=== PATIENT | male | born 1985 | race African-American/Black ===

== ENCOUNTER 2019-08-26 11:17 | Inpatient (IN) | payer OTHER ==
[2019-08-26 12:24] LABS: #Basophils 0.1 thou/uL (0.0-0.2); #Eosinphils 0.1 thou/uL (0.0-0.7); #Monocytes 1.2 thou/uL (0.11-0.59); #Neutrophils 7.1 thou/uL (1.40-6.50); %Basophils 0.6 % (0.0-1.0); %Eosinophils 0.5 % (0.0-10.0); %Lymphocytes 19.5 % (21.0-51.0); %Monocytes 11.6 % (0.0-10.0); %Neutrophils 67.8 % (42.0-75.0); Hemoglobin 15.2 g/dL (14.0-18.0); Mean Corpuscular HGB CONC 33.7 g/dL (32.0-36.0); Mean Corpuscular Hemoglobin 30.1 pg (27.0-31.0); Mean Corpuscular Volume 89.3 fL (78.0-98.0); Mean Platelet Volume 9.4 fL (7.4-10.4); Platelet Count 165 thou/uL (130-400); RBC Distribution Width 11.9 % (11.5-14.5); Red Blood Cell (RBC) Count 5.05 mill/uL (4.70-6.10); White Blood Cell (WBC) Count 10.4 thou/uL (4.8-10.8)
[2019-08-26 12:51] LABS: ALT (SGPT) 68 U/L (8-55); AST (SGOT) 48 U/L (5-34); Albumin 4.2 g/dL (3.5-5.0); Alkaline Phosphatase 104 U/L (40-110); Anion Gap 13 mmol/L (10-20); BUN (Urea Nitrogen) 9 mg/dL (8.9-20.6); Calc. Creatinine Clearance 0 mL/min (70-130); Carbon Dioxide 26 mmol/L (22-29); Chloride 102 mmol/L (98-107); Estimated GFR-MDRD Greater than 90; Globulin 3.9 g/dL (2.4-3.5); Glucose 109 mg/dL (70-105); Potassium 3.2 mmol/L (3.5-5.1); Protein, Total 8.1 g/dL (6.0-8.3); Sodium 138 mmol/L (136-145)
[2019-08-26] MEDS ORDERED: Piperacillin/Tazobactam 4.5 GM VIAL ONE (13:18)
--- NOTE | 2019-08-26 15:27 | ULT ---
RIGHT LOWER EXTREMITY DOPPLER VENOUS ULTRASOUND PROVIDED CLINICAL HISTORY: Right lower extremity pain and edema TECHNIQUE: Grayscale and color Doppler sonography with spectral analysis was performed of the right common femor al, femoral, popliteal, posterior tibial, greater saphenous and profunda femoral veins. FINDINGS: There is normal compression, flow and augmentation seen within the deep venous structures o f the right lower extremity. There are enlarged lymph nodes within the right inguinal region. 1 cm enlarged lymph nodes measures 2.1 x 6 1.0 x 1.7 cm. An additional enlarged lymph node measures 3.2 x 1.3 x 2.8 cm. IMPRESSION: No sonographic evidence for right lower extremity deep venous thrombosis. Right inguinal lymphadenopathy
[2019-08-26] MEDS ORDERED: Senokot S 8.6-50 MG TAB PO PRN (16:03)
[2019-08-26 16:43] VITALS: BMI 29.2
[2019-08-26] MEDS ORDERED: Sodium Chloride 0.9% 1,000 ML IV SCH (17:25)
[2019-08-26] MEDS ORDERED: Ondansetron ODT 4 MG TAB SL PRN (17:25)
[2019-08-26] MEDS ORDERED: Ondansetron PF 4 MG/2 ML Vial IVP PRN (17:25)
[2019-08-26] MEDS: Potassium Chloride 20 MEQ TAB PO SCH (18:00)
[2019-08-26] MEDS ORDERED: Piperacillin/Tazobactam 4.5 GM in Sodium Chloride 0.9% 100 ML IVPB SCH (20:00)
[2019-08-26] MEDS: Piperacillin/Tazobactam 4.5 GM in Sodium Chloride 0.9% 100 ML IVPB SCH (20:20)
[2019-08-26] MEDS: Famotidine 20 MG TAB PO SCH (20:21)
[2019-08-26] MEDS: Acetaminophen 325 MG TAB PO PRN (20:21)
[2019-08-27] MEDS ORDERED: Vancomycin HCl 1 GM in Premix Bag 1 BAG IVPB SCH (02:00)
[2019-08-27] MEDS: Vancomycin HCl 1 GM in Premix Bag 1 BAG IVPB SCH ×2 (02:10→14:31)
[2019-08-27] MEDS: Piperacillin/Tazobactam 4.5 GM in Sodium Chloride 0.9% 100 ML IVPB SCH ×3 (06:08→20:46)
--- NOTE | 2019-08-27 06:18 | HP ---
PRIMARY CARE PHYSICIAN: [facility] at group home. CHIEF COMPLAINT: Evaluation of pain to right foot. HISTORY OF PRESENT ILLNESS: Mr. Cavazos is a 33-year-old male, [facility] Reports of right foot pain, onset Sunday. Reports that he went to the [facility], was started on Keflex. Reports that starting Sunday, pain, swelling, and redness started to extend from his foot up to his lower right extremity, today almost to his knee. He reports some fever and chills for the last couple of days. He denies any specific injury. Denies any noticeable opening to the skin on the right foot. Denies any history of anything similar in his past. The patient was noted to have a potassium of 3.2, AST 48, ALT 68, globulin 3.9. Otherwise, labs are unremarkable. The patient was started on Zosyn and vancomycin in the emergency room and then admitted to medical for further IV antibiotics and management. The patient also had an ultrasound of the right leg, which was negative for DVT. REVIEW OF SYSTEMS: The patient reports fever and chills. He denies any chest pain or shortness of breath. Does report right foot pain, redness, warmth, pain, and swelling; all of this extends from his toes up to about an inch below his knee. Denies any focal weakness or headache. All other symptoms are reviewed and are negative unless mentioned in the HPI. PAST MEDICAL HISTORY: None. PAST SURGICAL HISTORY: None. PSYCHIATRIC HISTORY: None. ALLERGIES: NONE. CURRENT MEDICATIONS: 1. Hydrochlorothiazide 12.5 mg p.o. once a day in the morning. 2. Cephalexin 500 mg once a day in the morning. 3. Tylenol 325 mg p.o. once a day. PHYSICAL EXAMINATION: VITAL SIGNS: Blood pressure 126/80, pulse is 84, respirations 18, temp is 98.6, pO2 sats are 98% on room air. CONSTITUTIONAL: The patient is nontoxic appearing. He is alert and oriented to person, place, and time. HEENT: Head is atraumatic and normocephalic. Pupils are equally round and reactive to light. Extraocular muscles are intact. ENT; mouth exam is normal. Mucous membranes are moist. NECK: Trachea is midline. No tenderness. RESPIRATORY/CHEST: Breath sounds are clear. Chest expansion is equal. CARDIOVASCULAR: Regular heart rate and rhythm. Heart sounds are normal. ABDOMEN: Nontender. Bowel sounds are heard. BACK: Normal range of motion. No tenderness. EXTREMITIES: Upper extremity; normal motor strength, normal range of motion, radial pulses are equal. Lower extremity; right lower leg is edematous with erythema and warmth. Erythema extends from the toes up to about 1 inch below the knee. SKIN: Otherwise warm, dry, normal in color. Please see right lower leg description. DIAGNOSTIC STUDIES: Chest x-ray is negative for any acute findings. PLAN AND ASSESSMENT: 1. Cellulitis, right lower leg. We will continue the vancomycin and Zosyn. We have asked pharmacy to dose the vancomycin. We will recheck labs in the morning. 2. Hypokalemia. K-Dur 40 mEq ordered today and in the morning, we will recheck lab values. 3. Elevated liver enzymes. We will monitor and recheck in the morning. 4. Deep venous thrombosis and gastrointestinal prophylaxis have been started. 5. Hospital course is dependent on clinical findings. Job ID: [id number]
[2019-08-27 06:19] LABS: #Eosinphils 0.1 thou/uL (0.0-0.7); #Lymphocytes 1.6 thou/uL (1.20-3.40); #Monocytes 1.1 thou/uL (0.11-0.59); #Neutrophils 5.3 thou/uL (1.40-6.50); %Eosinophils 0.7 % (0.0-10.0); %Lymphocytes 19.9 % (21.0-51.0); %Monocytes 13.6 % (0.0-10.0); %Neutrophils 65.7 % (42.0-75.0); Hemoglobin 12.9 g/dL (14.0-18.0); Mean Corpuscular HGB CONC 33.9 g/dL (32.0-36.0); Mean Corpuscular Hemoglobin 30.4 pg (27.0-31.0); Mean Corpuscular Volume 89.8 fL (78.0-98.0); Platelet Count 192 thou/uL (130-400); RBC Distribution Width 12.1 % (11.5-14.5); Red Blood Cell (RBC) Count 4.25 mill/uL (4.70-6.10); White Blood Cell (WBC) Count 8.1 thou/uL (4.8-10.8)
[2019-08-27] MEDS: Potassium Chloride 20 MEQ TAB PO SCH (06:20)
[2019-08-27 06:41] LABS: ALT (SGPT) 48 U/L (8-55); AST (SGOT) 33 U/L (5-34); Albumin 3.4 g/dL (3.5-5.0); Alkaline Phosphatase 94 U/L (40-110); Anion Gap 10 mmol/L (10-20); BUN (Urea Nitrogen) 8 mg/dL (8.9-20.6); Bilirubin, Total 0.9 mg/dL (0.2-1.2); Calc. Creatinine Clearance 175 mL/min (70-130); Calcium 9.1 mg/dL (7.8-10.44); Carbon Dioxide 27 mmol/L (22-29); Chloride 104 mmol/L (98-107); Estimated GFR-MDRD Greater than 90; Globulin 3.3 g/dL (2.4-3.5); Glucose 110 mg/dL (70-105); Potassium 3.8 mmol/L (3.5-5.1); Protein, Total 6.7 g/dL (6.0-8.3); Sodium 137 mmol/L (136-145)
[2019-08-27] MEDS: HYDROcodone/Acetaminophen 5/325 mg Tablet PO PRN ×2 (07:52→19:08)
[2019-08-27] MEDS: Enoxaparin Sodium 40 MG/0.4 ML SYRINGE SC SCH (07:52)
[2019-08-27] MEDS: Famotidine 20 MG TAB PO SCH ×2 (07:52→20:46)
[2019-08-27] MEDS ORDERED: FLU VACC QS2019-20(6MOS UP)/PF 60 MCG/0.5 ML SYRINGE IM ONE (09:00)
[2019-08-27] MEDS ORDERED: Iopamidol-370 76% 500 ML 1 ML ONE (11:28)
[2019-08-27] MEDS ORDERED: Morphine 2 MG/ML SYRINGE SLOW IVP PRN (21:18)
--- NOTE | 2019-08-27 21:19 | PDOC.EVN ---
Event Note - Event Note Event Note: Patient states his rash on his leg is still the same and leg is still swollen. He was taking diuretics for fluid retention in his legs and felt the rash and swelling got worst after that. Physical exam: Gen: alert, awake, oriented times three CV: RRR, no murmurs, rubs, gallops RLE: warm, with erythema extending up to knee. Tender to palpation. Foot swollen as well LLE: mild swelling but no tenderness Abdomen: nondistended RLE doppler: no DVT, right inguinal lymphadenopathy This is 33 year old male who presented with worsening rash and swelling after starting lasix RLE swelling rash - possibly from cellulitis vs gout vs allergic reaction - continue IV vancomycin and zosyn . Blood cultures negative - no DVT in right lower extremity - check RLE CT scan due to extensive erythema - check uric acid, try one dose of colchicine empirically - add morphine IV prn - continue tylenol prn and oxycodone prn Hypokalemia - resolved Anemia - Hb 12, continue to trend
--- NOTE | 2019-08-27 22:56 | CT ---
CT SCAN OF THE RIGHT LOWER EXTREMITY (LEG AND FOOT) WITH IV CONTRAST: 08/27/19 HISTORY: Erythema and swelling of the right leg. FINDINGS: There is fluid/edema in the subcutaneous fat of the right leg and foot. No abnormally loculated fluid collection is seen to suggest abscess formation. No bony destruction or periosteal reaction is noted to suggest osteomyelitis. No soft tissue air is seen. The bones are intact. IMPRESSION: Findings are suggestive of right lower extremity cellulitis. POS: OFF
[2019-08-27] MEDS ORDERED: Colchicine 0.6 MG TAB PO SCH (23:45)
[2019-08-28] MEDS: Vancomycin HCl 1 GM in Premix Bag 1 BAG IVPB SCH ×2 (01:36→15:17)
[2019-08-28 05:28] LABS: Hemoglobin 13.1 g/dL (14.0-18.0); Mean Corpuscular HGB CONC 33.2 g/dL (32.0-36.0); Mean Corpuscular Hemoglobin 30.1 pg (27.0-31.0); Mean Corpuscular Volume 90.6 fL (78.0-98.0); Mean Platelet Volume 8.4 fL (7.4-10.4); Platelet Count 216 thou/uL (130-400); RBC Distribution Width 12.3 % (11.5-14.5); Red Blood Cell (RBC) Count 4.35 mill/uL (4.70-6.10); White Blood Cell (WBC) Count 9.5 thou/uL (4.8-10.8)
[2019-08-28 05:50] LABS: Anion Gap 10 mmol/L (10-20); BUN (Urea Nitrogen) 6 mg/dL (8.9-20.6); Calc. Creatinine Clearance 171 mL/min (70-130); Calcium 9.1 mg/dL (7.8-10.44); Carbon Dioxide 27 mmol/L (22-29); Chloride 103 mmol/L (98-107); Estimated GFR-MDRD Greater than 90; Glucose 107 mg/dL (70-105); Potassium 3.7 mmol/L (3.5-5.1); Sodium 136 mmol/L (136-145)
[2019-08-28] MEDS: HYDROcodone/Acetaminophen 5/325 mg Tablet PO PRN ×2 (06:22→21:38)
[2019-08-28] MEDS: Piperacillin/Tazobactam 4.5 GM in Sodium Chloride 0.9% 100 ML IVPB SCH (06:22)
[2019-08-28] MEDS ORDERED: CEFAZOLIN 2 GM in Premix Bag 1 BAG IVPB SCH (09:21)
[2019-08-28] MEDS: Enoxaparin Sodium 40 MG/0.4 ML SYRINGE SC SCH (09:22)
[2019-08-28] MEDS: Famotidine 20 MG TAB PO SCH ×2 (09:22→21:38)
[2019-08-28] MEDS: Acetaminophen 325 MG TAB PO PRN ×2 (09:22→15:42)
--- NOTE | 2019-08-28 09:26 | PDOC.HOSPP ---
- Subjective Encounter Date: 08/28/19 Encounter Time: 09:24 Subjective: The patient reports improvement in his pain with pain medication. CT scan of RLE showed severe swelling and edema, no abscess or fluid collection. He has mild tingling in his feet He reported no relief with colchicine. Uric acid level came back low - Objective Vital Signs & Weight: Vital Signs (12 hours) Temp Pulse Resp BP Pulse Ox 08/28/19 07:35 99.2 F 86 16 101/67 96 Weight Weight 223 lb 1.725 oz I&O: 08/27/19 08/28/19 08/29/19 06:59 06:59 06:59 Intake Total 900 1330 Balance 900 1330 Result Diagrams: 08/28/19 05:14 08/28/19 05:14 Hospitalist ROS - Review of Systems Constitutional: denies: fever, chills - Medication Medications: Active Medications Generic Name Dose Route Start Last Admin Trade Name Freq PRN Reason Stop Dose Admin Acetaminophen 650 mg 08/26/19 16:03 08/28/19 09:22 Tylenol PO 650 mg Q4H PRN Administration Headache/Fever/Mild Pain (1-3) Hydrocodone Bitart/Acetaminophen 1 tab 08/26/19 16:03 08/28/19 06:22 [place] 5/325 PO 1 tab Q4H PRN Administration Moderate Pain (4-6) Enoxaparin Sodium 40 mg 08/27/19 09:00 08/28/19 09:22 Lovenox SC 40 mg 0900 ASHLEY Administration Famotidine 20 mg 08/26/19 21:00 08/28/19 09:22 Pepcid PO 20 mg BID ASHLEY Administration Vancomycin HCl 1 gm/ Device 200 mls @ 200 mls/hr 08/27/19 02:00 08/28/19 01: 36 IVPB 200 mls 0200,1400 ASHLEY Administration - Exam General Appearance: NAD, awake alert Eye: PERRL, anicteric sclera ENT: normocephalic atraumatic, no oropharyngeal lesions Neck: supple, symmetric, no JVD, no thyromegaly Heart: RRR, no murmur, no gallops, no rubs Respiratory: CTAB, no wheezes, no rales, no ronchi Extremities - other findings: Diffuse erythema from mid calf to foot with warmth and tenderness. Skin - other findings: Dry skin on the foot. 3+ pitting edema. Improved from yesterday Hosp A/P - Plan RLE doppler: no DVT, right inguinal lymphadenopathy CT Right lower extremity: edema and fluid build up without abscess, consistent with cellulitis This is 33 year old male who presented with worsening rash and swelling after starting lasix RLE swelling rash - possibly from cellulitis vs allergic reaction - continue IV vancomycin and zosyn . Blood cultures negative. CT right lower extremity consistent with cellulitis. Dopplers negative for DVT - uric acid negative - advised to keep leg elevated and wear compression stockings - continue tylenol prn and oxycodone prn and morphine prn Hypokalemia - resolved Anemia - Hb 12, continue to trend - check B12, folate Code status: full code
[2019-08-28] MEDS: Piperacillin/Tazobactam 3.375 GM in Sodium Chloride 0.9% 100 ML IVPB SCH ×3 (10:54→21:39)
[2019-08-28 13:40] LABS: Vancomycin, Trough 3.7 ug/mL
[2019-08-29] MEDS: Piperacillin/Tazobactam 3.375 GM in Sodium Chloride 0.9% 100 ML IVPB SCH ×2 (05:20→10:12)
[2019-08-29 05:32] LABS: Hemoglobin 12.9 g/dL (14.0-18.0); Mean Corpuscular HGB CONC 32.5 g/dL (32.0-36.0); Mean Corpuscular Hemoglobin 29.5 pg (27.0-31.0); Mean Corpuscular Volume 90.8 fL (78.0-98.0); Platelet Count 245 thou/uL (130-400); RBC Distribution Width 12.3 % (11.5-14.5); Red Blood Cell (RBC) Count 4.35 mill/uL (4.70-6.10); White Blood Cell (WBC) Count 9.7 thou/uL (4.8-10.8)
[2019-08-29 05:53] LABS: ALT (SGPT) 83 U/L (8-55); AST (SGOT) 46 U/L (5-34); Albumin 3.3 g/dL (3.5-5.0); Alkaline Phosphatase 128 U/L (40-110); Anion Gap 9 mmol/L (10-20); BUN (Urea Nitrogen) 6 mg/dL (8.9-20.6); Bilirubin, Total 0.7 mg/dL (0.2-1.2); Calc. Creatinine Clearance 177 mL/min (70-130); Calcium 8.9 mg/dL (7.8-10.44); Carbon Dioxide 26 mmol/L (22-29); Chloride 105 mmol/L (98-107); Estimated GFR-MDRD Greater than 90; Globulin 3.5 g/dL (2.4-3.5); Glucose 105 mg/dL (70-105); Protein, Total 6.8 g/dL (6.0-8.3); Sodium 136 mmol/L (136-145)
[2019-08-29] MEDS: Famotidine 20 MG TAB PO SCH ×2 (07:37→20:02)
[2019-08-29] MEDS: Enoxaparin Sodium 40 MG/0.4 ML SYRINGE SC SCH (07:38)
[2019-08-29] MEDS: HYDROcodone/Acetaminophen 5/325 mg Tablet PO PRN ×3 (07:40→20:02)
--- NOTE | 2019-08-29 12:15 | PDOC.HOSPP ---
- Subjective Encounter Date: 08/29/19 Encounter Time: 12:13 Subjective: The patient got out of bed today, he still has trouble walking however and pain when he walks. No tingling or numbness. Patient is keeping his leg elevated - Objective Vital Signs & Weight: Vital Signs (12 hours) Temp Pulse Resp BP Pulse Ox 08/29/19 08:00 97 08/29/19 07:47 99.3 F 93 18 111/73 97 Weight Weight 223 lb 1.725 oz I&O: 08/28/19 08/29/19 08/30/19 06:59 06:59 06:59 Intake Total 1330 1480 360 Balance 1330 1480 360 Result Diagrams: 08/29/19 05:20 08/29/19 05:20 Hospitalist ROS - Review of Systems Constitutional: denies: fever, chills Cardiovascular: denies: chest pain, palpitations - Medication Medications: Active Medications Generic Name Dose Route Start Last Admin Trade Name Freq PRN Reason Stop Dose Admin Acetaminophen 650 mg 08/26/19 16:03 08/28/19 15:42 Tylenol PO 650 mg Q4H PRN Administration Headache/Fever/Mild Pain (1-3) Hydrocodone Bitart/Acetaminophen 1 tab 08/26/19 16:03 08/28/19 21:38 [place] 5/325 PO 1 tab Q4H PRN Administration Moderate Pain (4-6) Hydrocodone Bitart/Acetaminophen 2 tab 08/26/19 16:03 08/29/19 07:40 [place] 5/325 PO 2 tab Q4H PRN Administration Severe Pain (7-10) Enoxaparin Sodium 40 mg 08/27/19 09:00 08/29/19 07:38 Lovenox SC 40 mg 0900 ASHLEY Administration Famotidine 20 mg 08/26/19 21:00 08/29/19 07:37 Pepcid PO 20 mg BID ASHLEY Administration Piperacillin Sod/Tazobactam 100 mls @ 200 mls/hr 08/28/19 10:00 08/29/19 10: 12 Sod 3.375 gm/ Sodium Chloride IVPB 100 mls 0400,1000,1600,2200 ASHLEY Administration Vancomycin HCl 2 gm/ Sodium 500 mls @ 250 mls/hr 08/28/19 14:00 08/29/19 01: 49 Chloride IVPB 500 mls 0200,1400 ASHLEY Administration - Exam General Appearance: NAD, awake alert Eye: PERRL, anicteric sclera ENT: normocephalic atraumatic, no oropharyngeal lesions Neck: supple, symmetric, no JVD, no thyromegaly Heart: RRR, no murmur, no gallops, no rubs Respiratory: CTAB, no wheezes, no rales, no ronchi Gastrointestinal: soft, non-tender, non-distended, normal bowel sounds Extremities: no cyanosis, no clubbing Extremities - other findings: RLE edema 3+, less erythema on the foot, still some on roberto Hosp A/P - Plan RLE doppler: no DVT, right inguinal lymphadenopathy CT Right lower extremity: edema and fluid build up without abscess, consistent with cellulitis This is 33 year old male who presented with worsening rash and swelling after starting lasix RLE swelling rash - possibly from cellulitis vs allergic reaction - continue IV vancomycin and zosyn day 3 . Blood cultures negative. CT right lower extremity consistent with cellulitis. Dopplers negative for DVT - uric acid negative - advised to keep leg elevated and wear compression stockings. Ambulate out of bed every 2 hours - continue tylenol prn and oxycodone prn and morphine prn Transaminitis - LFTs trended up, will hold tylenol - no abdominal pain - repeat LFTS tomorrow Anemia - Hb 12, continue to trend - B12 and folate normal Hypokalemia - resolved Dispo: possibly 1-2 days Code status: full code
[2019-08-29] MEDS: cefTRIAXone\\ROCEPHIN 1 GM in Sodium Chloride 0.9% 100 ML IVPB SCH (14:04)
--- NOTE | 2019-08-29 14:10 | CON ---
DATE OF CONSULTATION: REASON FOR CONSULTATION: Cellulitis. HISTORY OF PRESENT ILLNESS: A 33-year-old, first admission to [facility] with history of new onset of right foot and leg inflammatory process, which developed pretty much overnight. Prior to this, his health was pretty much normal. He was given Keflex with persistence of problem, so he was transferred for evaluation and treatment here. He is receiving broad-spectrum coverage. He is currently awake and alert. No headaches, visual symptoms, sore throat, odynophagia, dysphagia. No cough or sputum production. No chest pain. No abdominal pain or diarrhea. No genitourinary symptoms. No joint symptoms. No neurological symptoms. MEDICAL HISTORY: Negative. SURGICAL HISTORY: Negative. ALLERGIES: NONE. FAMILY HISTORY: Noncontributory. SOCIAL HISTORY: He is currently incarcerated at [facility]. Prior smoking history. CURRENT MEDICATIONS: 1. Hydrocodone. 2. Lovenox. 3. Pepcid. 4. Zosyn. 5. Vancomycin. PHYSICAL EXAMINATION: VITAL SIGNS: T-max 99.9, blood pressure 111/73, pulse 93, respirations 18, O2 saturation 97%. SKIN: Circumferential erythema extending from the area immediately below the knee all the way to the entire foot, areas of exfoliation in the dorsal aspect of the skin of the foot. No intertriginous problems in the toe area. No blistering yet. No evidence of abscess formation or necrosis. No lymphadenopathy. HEENT: Ocular movements are conjugate. Sclerae white. Pupils are equal. Oral cavity with teeth in very good condition. Little bit of periodontitis. No thrush. NECK: Supple. No jugular vein distention or carotid bruits. No thyromegaly. LUNGS: Symmetric. Clear breath sounds. HEART: S1 and S2, regular rate. No S3 or S4. ABDOMEN: Soft, not distended or tender. No ascites. No bladder distention. EXTREMITIES: No joint inflammatory activity. Pulses are normal in dorsalis pedis. NEURO EXAMINATION: Nonfocal. Cognitive function including speech is normal. Recollection is normal. He is oriented. LABORATORY DATA: White cell count is 10.4 down to 9.7, hemoglobin is at 12.9, MCV 90, and platelets 245, 67% neutrophils, 19% lymphocytes. Sodium 137, creatinine 0.85. Liver profile normal. Albumin 3.4. The AST is up to 46, ALT 83, and alkaline phosphatase 128. Vanc trough, 3.7. Blood culture, no growth at 48 hours. There is a lower extremity CT scan, which showed cellulitis. There is a vascular ultrasound with no evidence of deep vein thrombosis with the right lymphadenitis. ASSESSMENT: Acute cellulitis, right leg. No evidence of other complications. No evidence of necrotizing features. DISCUSSION: The patient will be transitioned to Rocephin. Discontinue current antimicrobials, beta-hemolytic streptococci are the more likely pathogens in this kind of situation. Gram-negative rods sometimes may occur in the setting of chronic liver disease or other types of immunosuppression. Staphylococcus aureus sometimes can present mimicking cellulitis and only later, an abscess can be more obvious, but in this case, I do not see any reasons to suspect that. Typically, those cases take up to a week to be able to be transitioned to oral antimicrobial therapy. Job ID: [id number]
[2019-08-30 07:35] LABS: Hemoglobin 13.1 g/dL (14.0-18.0); Mean Corpuscular HGB CONC 33.5 g/dL (32.0-36.0); Mean Corpuscular Volume 92.5 fL (78.0-98.0); Mean Platelet Volume 8.4 fL (7.4-10.4); Platelet Count 277 thou/uL (130-400); RBC Distribution Width 12.5 % (11.5-14.5); Red Blood Cell (RBC) Count 4.24 mill/uL (4.70-6.10); White Blood Cell (WBC) Count 8.7 thou/uL (4.8-10.8)
[2019-08-30 07:57] LABS: ALT (SGPT) 78 U/L (8-55); AST (SGOT) 35 U/L (5-34); Albumin 3.4 g/dL (3.5-5.0); Alkaline Phosphatase 127 U/L (40-110); Anion Gap 8 mmol/L (10-20); BUN (Urea Nitrogen) 8 mg/dL (8.9-20.6); Bilirubin, Total 0.6 mg/dL (0.2-1.2); Calc. Creatinine Clearance 171 mL/min (70-130); Calcium 9.4 mg/dL (7.8-10.44); Carbon Dioxide 27 mmol/L (22-29); Chloride 106 mmol/L (98-107); Estimated GFR-MDRD Greater than 90; Globulin 3.5 g/dL (2.4-3.5); Glucose 108 mg/dL (70-105); Potassium 4.4 mmol/L (3.5-5.1); Protein, Total 6.9 g/dL (6.0-8.3); Sodium 137 mmol/L (136-145)
[2019-08-30] MEDS: Famotidine 20 MG TAB PO SCH ×2 (08:01→20:11)
[2019-08-30] MEDS: Enoxaparin Sodium 40 MG/0.4 ML SYRINGE SC SCH (08:01)
[2019-08-30] MEDS: HYDROcodone/Acetaminophen 5/325 mg Tablet PO PRN ×3 (08:03→20:11)
[2019-08-30] MEDS: cefTRIAXone\\ROCEPHIN 1 GM in Sodium Chloride 0.9% 100 ML IVPB SCH (13:59)
--- NOTE | 2019-08-30 14:52 | PDOC.HOSPP ---
- Subjective Encounter Date: 08/30/19 Encounter Time: 14:50 Subjective: Mr. Cavazos was seen today in follow-up of cellulitis of the right leg. He notes some improvement. No new complaints. - Objective Vital Signs & Weight: Vital Signs (12 hours) Temp Pulse Resp BP Pulse Ox 08/30/19 08:00 97 08/30/19 07:48 99.3 F 83 18 97/65 97 Weight Weight 223 lb 1.725 oz I&O: 08/29/19 08/30/19 08/31/19 06:59 06:59 06:59 Intake Total 1480 1570 720 Balance 1480 1570 720 Result Diagrams: 08/30/19 06:50 08/30/19 06:50 Hospitalist ROS - Medication Medications: Active Medications Generic Name Dose Route Start Last Admin Trade Name Freq PRN Reason Stop Dose Admin Acetaminophen 650 mg 08/26/19 16:03 08/28/19 15:42 Tylenol PO 650 mg Q4H PRN Administration Headache/Fever/Mild Pain (1-3) Hydrocodone Bitart/Acetaminophen 1 tab 08/26/19 16:03 08/28/19 21:38 [place] 5/325 PO 1 tab Q4H PRN Administration Moderate Pain (4-6) Hydrocodone Bitart/Acetaminophen 2 tab 08/26/19 16:03 08/30/19 08:03 [place] 5/325 PO 2 tab Q4H PRN Administration Severe Pain (7-10) Enoxaparin Sodium 40 mg 08/27/19 09:00 08/30/19 08:01 Lovenox SC 40 mg 0900 ASHLEY Administration Famotidine 20 mg 08/26/19 21:00 08/30/19 08:01 Pepcid PO 20 mg BID ASHLEY Administration Ceftriaxone Sodium 1 gm/ 100 mls @ 200 mls/hr 08/29/19 14:00 08/30/19 13:59 Sodium Chloride IVPB 100 mls 1400 ASHLEY Administration Sodium Chloride 10 ml 08/26/19 16:03 08/30/19 08:01 Flush - Normal Saline IVF 10 ml PRN PRN Administration Saline Flush - Exam Eye: PERRL Heart: RRR, no murmur, no gallops, no rubs, normal peripheral pulses Respiratory: CTAB, no wheezes, no rales, no ronchi, normal chest expansion Gastrointestinal: soft, non-tender, non-distended, normal bowel sounds, no palpable masses, no hepatomegaly Extremities: 2+ LE edema (+ massive edema, and erythema in the right lower extremity, good capillary refill pulses are faint- likely due to the edema) Hosp A/P (1) Cellulitis of right lower extremity Code(s): L03.115 - CELLULITIS OF RIGHT LOWER LIMB Status: Acute - Plan * Severe cellulitis of the right lower extremity- continue IV Rocephin * Will monage in the hospital a few more days, and continue to observe clinically
[2019-08-31] MEDS: HYDROcodone/Acetaminophen 5/325 mg Tablet PO PRN ×3 (06:26→20:21)
[2019-08-31] MEDS: Enoxaparin Sodium 40 MG/0.4 ML SYRINGE SC SCH (08:16)
[2019-08-31] MEDS: Famotidine 20 MG TAB PO SCH ×2 (08:16→20:16)
--- NOTE | 2019-08-31 12:57 | PRG ---
DATE OF SERVICE: 08/31/2019 SUBJECTIVE: Feels about the same, still moderate pain in the right leg. No respiratory symptoms or abdominal pain or diarrhea. No genitourinary symptoms. OBJECTIVE: VITAL SIGNS: Vital signs are essentially normal. Temperature curve seems to be trending downwards. GENERAL: Awake, alert, and oriented. LUNGS: Clear. HEART: S1 and S2, regular rate. ABDOMEN: Soft, not distended. EXTREMITIES: Right leg with moderately swollen. One can see a few creases of the skin now. The erythema is less intense, still moderately tender. Creatinine 0.87. AST at 35, ALT down to 78. White cell count is 8.7, hemoglobin 13. ASSESSMENT AND DISCUSSION: Cellulitis of the right leg. The only precipitating factor would be the rash in the dorsal aspect of the right foot. There is a moderate improvement thus far and we will continue with Rocephin. We will try PRATEEK yao to see if it helps accelerating the improvement process. Job ID: [id number]
[2019-08-31] MEDS: cefTRIAXone\\ROCEPHIN 1 GM in Sodium Chloride 0.9% 100 ML IVPB SCH (13:54)
--- NOTE | 2019-08-31 15:17 | PDOC.HOSPP ---
- Subjective Encounter Date: 08/31/19 Encounter Time: 15:15 Subjective: Mr. Cavazos was seen today in follow-up of cellulitis of the right leg. He does not have any complaints. - Objective Vital Signs & Weight: Vital Signs (12 hours) Temp Pulse Resp BP BP Pulse Ox 08/31/19 11:00 97.5 F L 76 14 116/72 98 08/31/19 08:00 96 08/31/19 07:43 99.1 F 86 16 114/67 96 08/31/19 04:56 98.7 F 75 20 94/57 L 98 Weight Weight 223 lb 1.725 oz I&O: 08/30/19 08/31/19 09/01/19 06:59 06:59 06:59 Intake Total 1570 1690 600 Balance 1570 1690 600 Result Diagrams: 08/30/19 06:50 08/30/19 06:50 Hospitalist ROS - Medication Medications: Active Medications Generic Name Dose Route Start Last Admin Trade Name Freq PRN Reason Stop Dose Admin Acetaminophen 650 mg 08/26/19 16:03 08/28/19 15:42 Tylenol PO 650 mg Q4H PRN Administration Headache/Fever/Mild Pain (1-3) Hydrocodone Bitart/Acetaminophen 1 tab 08/26/19 16:03 08/28/19 21:38 [place] 5/325 PO 1 tab Q4H PRN Administration Moderate Pain (4-6) Hydrocodone Bitart/Acetaminophen 2 tab 08/26/19 16:03 08/31/19 11:17 [place] 5/325 PO 2 tab Q4H PRN Administration Severe Pain (7-10) Enoxaparin Sodium 40 mg 08/27/19 09:00 08/31/19 08:16 Lovenox SC 40 mg 0900 ASHLEY Administration Famotidine 20 mg 08/26/19 21:00 08/31/19 08:16 Pepcid PO 20 mg BID ASHLEY Administration Ceftriaxone Sodium 1 gm/ 100 mls @ 200 mls/hr 08/29/19 14:00 08/31/19 13:54 Sodium Chloride IVPB 100 mls 1400 ASHLEY Administration Morphine Sulfate 2 mg 08/27/19 21:18 08/31/19 13:52 Morphine SLOW IVP 2 mg Q4H PRN Administration Severe Pain (7-10) Sodium Chloride 10 ml 08/26/19 16:03 08/31/19 08:17 Flush - Normal Saline IVF 10 ml PRN PRN Administration Saline Flush - Exam Eye: PERRL Heart: RRR, no murmur, no gallops, no rubs, normal peripheral pulses Respiratory: CTAB, no wheezes, no rales, no ronchi, normal chest expansion Gastrointestinal: soft, non-tender, non-distended, normal bowel sounds Extremities: 2+ LE edema (+ massive edema of the right lower extremity, less redness than yesterday, and less edema) Hosp A/P (1) Cellulitis of right lower extremity Code(s): L03.115 - CELLULITIS OF RIGHT LOWER LIMB Status: Acute - Plan * Severe cellulitis of the right lower extremity- continue IV Rocephin * Slow improvement
[2019-08-31] MEDS: Nystatin Cream 30 GM TUBE TOP SCH (20:21)
[2019-08-31] MEDS ORDERED: Nystatin Cream 30 GM TUBE TOP SCH (21:00)
[2019-09-01] MEDS: HYDROcodone/Acetaminophen 5/325 mg Tablet PO PRN ×3 (08:02→20:32)
[2019-09-01] MEDS: Famotidine 20 MG TAB PO SCH ×2 (08:04→20:31)
[2019-09-01] MEDS: Enoxaparin Sodium 40 MG/0.4 ML SYRINGE SC SCH (08:06)
[2019-09-01] MEDS: Nystatin Cream 30 GM TUBE TOP SCH ×2 (08:08→20:30)
[2019-09-01 09:40] LABS: #Eosinphils 0.3 thou/uL (0.0-0.7); #Lymphocytes 1.8 thou/uL (1.20-3.40); #Monocytes 0.5 thou/uL (0.11-0.59); #Neutrophils 4.8 thou/uL (1.40-6.50); %Basophils 0.5 % (0.0-1.0); %Eosinophils 4.2 % (0.0-10.0); %Lymphocytes 23.7 % (21.0-51.0); %Monocytes 7.2 % (0.0-10.0); %Neutrophils 64.4 % (42.0-75.0); Hemoglobin 13.2 g/dL (14.0-18.0); Mean Corpuscular HGB CONC 32.9 g/dL (32.0-36.0); Mean Corpuscular Hemoglobin 30.5 pg (27.0-31.0); Mean Corpuscular Volume 92.6 fL (78.0-98.0); Mean Platelet Volume 7.9 fL (7.4-10.4); Platelet Count 379 thou/uL (130-400); RBC Distribution Width 12.2 % (11.5-14.5); Red Blood Cell (RBC) Count 4.34 mill/uL (4.70-6.10); White Blood Cell (WBC) Count 7.4 thou/uL (4.8-10.8)
[2019-09-01 10:03] LABS: Carbon Dioxide 25 mmol/L (22-29); Chloride 104 mmol/L (98-107); Potassium 4.4 mmol/L (3.5-5.1); Sodium 137 mmol/L (136-145)
[2019-09-01 10:04] LABS: Anion Gap 12 mmol/L (10-20); BUN (Urea Nitrogen) 8 mg/dL (8.9-20.6); Calc. Creatinine Clearance 167 mL/min (70-130); Calcium 9.6 mg/dL (7.8-10.44); Estimated GFR-MDRD Greater than 90; Glucose 164 mg/dL (70-105)
[2019-09-01] MEDS: cefTRIAXone\\ROCEPHIN 1 GM in Sodium Chloride 0.9% 100 ML IVPB SCH (13:27)
--- NOTE | 2019-09-01 17:40 | PDOC.HOSPP ---
- Subjective Encounter Date: 09/01/19 Encounter Time: 17:38 Subjective: Mr. Cavazos was seen today in follow-up of cellulitis of the right leg. He notes improvement. - Objective Vital Signs & Weight: Vital Signs (12 hours) Temp Pulse Resp BP Pulse Ox 09/01/19 16:12 98.7 F 81 20 105/65 97 09/01/19 11:15 98.6 F 76 16 98/61 98 09/01/19 08:00 74 L 09/01/19 07:41 98.9 F 74 16 106/69 97 Weight Weight 223 lb 1.725 oz I&O: 08/31/19 09/01/19 09/02/19 06:59 06:59 06:59 Intake Total 4237 665 7125 Balance 1584 368 9699 Result Diagrams: 09/01/19 09:02 09/01/19 09:02 Hospitalist ROS - Medication Medications: Active Medications Generic Name Dose Route Start Last Admin Trade Name Freq PRN Reason Stop Dose Admin Acetaminophen 650 mg 08/26/19 16:03 08/28/19 15:42 Tylenol PO 650 mg Q4H PRN Administration Headache/Fever/Mild Pain (1-3) Hydrocodone Bitart/Acetaminophen 1 tab 08/26/19 16:03 08/28/19 21:38 [place] 5/325 PO 1 tab Q4H PRN Administration Moderate Pain (4-6) Hydrocodone Bitart/Acetaminophen 2 tab 08/26/19 16:03 09/01/19 16:21 [place] 5/325 PO 2 tab Q4H PRN Administration Severe Pain (7-10) Enoxaparin Sodium 40 mg 08/27/19 09:00 09/01/19 08:06 Lovenox SC 40 mg 0900 ASHLEY Administration Famotidine 20 mg 08/26/19 21:00 09/01/19 08:04 Pepcid PO 20 mg BID ASHLEY Administration Ceftriaxone Sodium 1 gm/ 100 mls @ 200 mls/hr 08/29/19 14:00 09/01/19 13:27 Sodium Chloride IVPB 100 mls 1400 ASHLEY Administration Morphine Sulfate 2 mg 08/27/19 21:18 08/31/19 13:52 Morphine SLOW IVP 2 mg Q4H PRN Administration Severe Pain (7-10) Nystatin 0 gm 08/31/19 21:00 09/01/19 08:08 Mycostatin Cream TOP 30 gm BID ASHLEY Administration Sodium Chloride 10 ml 08/26/19 16:03 09/01/19 13:28 Flush - Normal Saline IVF 10 ml PRN PRN Administration Saline Flush - Exam Heart: RRR, no murmur, no gallops, no rubs, normal peripheral pulses Respiratory: CTAB, no wheezes, no rales, no ronchi, normal chest expansion Gastrointestinal: soft, non-tender, non-distended, normal bowel sounds, no palpable masses, no hepatomegaly, no splenomegaly Extremities: 2+ LE edema (+ edema in the left lower extemity, mild erythema, and good distal pulses) Hosp A/P (1) Cellulitis of right lower extremity Code(s): L03.115 - CELLULITIS OF RIGHT LOWER LIMB Status: Acute - Plan * Severe cellulitis of the right lower extremity- he is beginning to show significant improvement * Continue Rocephin, and I suspect he can be transitioned to an oral antibiotic tomorrow, and hopefully discharged.
[2019-09-02] MEDS: Famotidine 20 MG TAB PO SCH (08:04)
[2019-09-02] MEDS: HYDROcodone/Acetaminophen 5/325 mg Tablet PO PRN ×2 (08:05→17:50)
[2019-09-02] MEDS: Enoxaparin Sodium 40 MG/0.4 ML SYRINGE SC SCH (08:09)
[2019-09-02] MEDS: Nystatin Cream 30 GM TUBE TOP SCH (08:10)
[2019-09-02] MEDS: cefTRIAXone\\ROCEPHIN 1 GM in Sodium Chloride 0.9% 100 ML IVPB SCH (13:27)
--- NOTE | 2019-09-02 15:45 | PDOC.HOSPP ---
- Subjective Encounter Date: 09/02/19 Encounter Time: 15:43 Subjective: Mr. Cavazos was seen today in follow-up of cellulitis. He does not have any new complaints. - Objective Vital Signs & Weight: Vital Signs (12 hours) Temp Pulse Resp BP Pulse Ox 09/02/19 07:34 98 09/02/19 07:14 98.6 F 77 16 114/73 98 Weight Weight 223 lb 1.725 oz I&O: 09/01/19 09/02/19 09/03/19 06:59 06:59 06:59 Intake Total 840 1100 Balance 840 1100 Result Diagrams: 09/01/19 09:02 09/01/19 09:02 Hospitalist ROS - Medication Medications: Active Medications Generic Name Dose Route Start Last Admin Trade Name Freq PRN Reason Stop Dose Admin Acetaminophen 650 mg 08/26/19 16:03 08/28/19 15:42 Tylenol PO 650 mg Q4H PRN Administration Headache/Fever/Mild Pain (1-3) Hydrocodone Bitart/Acetaminophen 1 tab 08/26/19 16:03 08/28/19 21:38 [place] 5/325 PO 1 tab Q4H PRN Administration Moderate Pain (4-6) Hydrocodone Bitart/Acetaminophen 2 tab 08/26/19 16:03 09/02/19 08:05 [place] 5/325 PO 2 tab Q4H PRN Administration Severe Pain (7-10) Enoxaparin Sodium 40 mg 08/27/19 09:00 09/02/19 08:09 Lovenox SC 40 mg 0900 ASHLEY Administration Famotidine 20 mg 08/26/19 21:00 09/02/19 08:04 Pepcid PO 20 mg BID ASHLEY Administration Ceftriaxone Sodium 1 gm/ 100 mls @ 200 mls/hr 08/29/19 14:00 09/02/19 13:27 Sodium Chloride IVPB 100 mls 1400 ASHLEY Administration Morphine Sulfate 2 mg 08/27/19 21:18 08/31/19 13:52 Morphine SLOW IVP 2 mg Q4H PRN Administration Severe Pain (7-10) Nystatin 0 gm 08/31/19 21:00 09/02/19 08:10 Mycostatin Cream TOP 30 gm BID ASHLEY Administration Sodium Chloride 10 ml 08/26/19 16:03 09/02/19 13:28 Flush - Normal Saline IVF 10 ml PRN PRN Administration Saline Flush - Exam Eye: PERRL Heart: RRR, no murmur, no gallops, no rubs, normal peripheral pulses Respiratory: CTAB, no wheezes, no rales, no ronchi, normal chest expansion, no tachypnea, normal percussion Gastrointestinal: soft, non-distended, normal bowel sounds Extremities: 2+ LE edema Hosp A/P (1) Cellulitis of right lower extremity Code(s): L03.115 - CELLULITIS OF RIGHT LOWER LIMB Status: Acute - Plan * Severe cellulitis of the right lower extremity- improved * Stable for discharge from the hospital
[2019-09-02 18:12] VITALS: BP 120/78; TEMP 98.5
--- NOTE | 2019-09-04 09:47 | DIS ---
DATE OF ADMISSION: 08/26/2019 DATE OF DISCHARGE: 09/02/2019 DISCHARGE DISPOSITION: Back to the [facility]. DISCHARGE DIAGNOSIS: Cellulitis of the right lower extremity. DISCHARGE MEDICATIONS: Include; 1. Keflex 500 mg p.o. twice daily. 2. Tylenol 3, one q.4 p.r.n. pain. PROCEDURES DONE DURING ADMISSION: The patient had a vascular ultrasound which was negative for deep vein thrombosis in the right leg and the patient also had a CT scan of the lower extremity, which was negative for any deep fluid collection or abscess. CODE STATUS: Full code. ALLERGIES: NO KNOWN DRUG ALLERGIES. HOSPITAL COURSE: Mr. Cavazos is a pleasant 34-year-old gentleman who was sent over from the [place] [facility] due to swelling in the patient's right lower extremity. The patient's leg was swollen almost three times the size or double the size of his left leg with extensive erythema. There is no known trauma or precipitating factor. The patient is not diabetic. CT scan was done to rule out deep infection into the fascial planes. This was negative. He was placed on IV antibiotics and was evaluated by ID due to the severity of the infection. It was recommended to continue with Rocephin. The patient did start to slowly improve with improving or lessening of the edema and redness and he was eventually transitioned to an oral antibiotic and this will be continued in the outpatient setting. Job ID: [id number]
== END 2019-09-02 19:34 | DRG 603 ==
LOC: ERS 11:17 → EEVIPCON 16:33 → T4-A 16:33
PROVIDERS: ADMIT Internal Medicine Nephrology; ATTEND Internal Medicine Nephrology
DX: L03.115 Cellulitis of right lower limb (principal); E87.6 Hypokalemia; R79.89 Other specified abnormal findings of blood chemistry; D64.9 Anemia, unspecified
CPT/HCPCS: 36415; 80048; 80053; 80202; 82607; 82746; 83605; 84550; 85025; 85027; 87040; 90471; 90686; 96365; 96367; G0008; J0696; J1650; J2270; J2543; J3370; J3490; J7050; Q9967